=== PATIENT | female | born 1945 | race Caucasian/White ===

== ENCOUNTER 2025-05-28 18:35 | Emergency (ER) | payer MEDICARE, BC, SELFPAY ==
[2025-05-28 18:41] VITALS: BP 202/104
[2025-05-28 18:59] LABS: Hematocrit 45.8 % (37.0-47.0); Hemoglobin 15.4 g/dL (12.0-16.0); Mean Corp Hgb Conc. 33.6 g/dL (33.0-37.0); Mean Corpuscular Volume 90.2 fL (81.0-99.0); Nucleated Red Blood Cells % 0 %; Platelet Count 218 10^3/uL (130-400); Red Cell Dist. Width 13.0 % (11.5-14.5)
[2025-05-28 19:16] LABS: ALT (SGPT) 22 U/L (0-35); AST (SGOT) 37 U/L (14-36); Albumin 4.9 g/dl (3.5-5.0); Alkaline Phosphatase 119 U/L (38-126); Blood Urea Nitrogen 13 mg/dl (7-17); Calcium 9.6 mg/dl (8.4-10.2); Carbon Dioxide 26 mmol/L (22-30); Chloride 103 mmol/L (98-107); Glucose 112 mg/dl (70-99); Potassium 4.7 mmol/L (3.5-5.1); Sodium 137 mmol/L (135-145); Total Protein 8.2 g/dl (6.3-8.2); eGFR > 60.00
[2025-05-28 19:22] LABS: Troponin I < 0.012 ng/ml
[2025-05-28 23:00] VITALS: BP 165/92
[2025-05-28 23:12] VITALS: BMI 23.7
--- NOTE | 2025-05-28 23:34 | ED.GENMED ---
History of Present Illness
General
Chief Complaint: Musculo-Skeletal Complaint
Source: patient
Exam Limitations: none
Time Seen by Provider: 05/28/25 23:00
Nursing documentation reviewed up to this point in time: agreed with
History of Present Illness
History of Present Illness:
see MDM
Review of Systems
Review of Systems
Allergies reviewed?: Yes
All Other Systems: Not applicable
Phy Exam
Physical Exam
Physical Exam:
GENERAL: Alert , very anxious, tremor with intention, seems anxiety related
HEAD: NCAT
EYE: pupils equal and reactive, no nystagmus, no photophobia
NECK: Supple,full rom, nontender
ENT: o/p clr, mmm.
no pharyngeal erythema
CARDIAC: irregularly irregular, afib with RVR/tachy, no edema
LUNGS: Clear breath sounds bilaterally, no acute respiratory distress, no wheezes/rales/rhonchi
ABDOMEN: Soft, without focal tenderness, no r/g, no cvat
NEUROLOGICAL: Alert and orientedx 4, cn intact, no facial asymmetry, 5/5 strength in UE/LE, sensation intact, romberg neg, ambulates without assistance, neg pronator drift
tremor
SKIN: Warm and dry, skin intact.
MUSCULOSKELETAL: No edema, well perfused.
PSYCH: anxiety
Course
Orders/Labs/Results
Orders:
Orders
05/28/25 18:36
EKG [Electrocardiogram (*1)] Urgent
Reason for Study: Chest Pain
EKG- Treatment ONCE
05/28/25 18:53
Complete Blood Count/With Diff Urgent
Comprehensive Metabolic Panel Urgent
Troponin I Urgent
05/28/25 23:27
COVID-19 Antigen Urgent
Source: Nasal Swab
05/28/25 23:28
Troponin I Urgent
05/28/25 23:30
0.9% Sodium Chloride 500 ml [Nss] 500 ml IV BOLUS
Acetaminophen [Tylenol] 650 mg PO NOW STA
05/28/25 23:31
diazePAM [Valium Injection] 2 mg IV NOW STA
05/29/25
CT Head & Neck Angio W/wo IV Urgent
Comment: brain tumor
Reason For Exam: L neck pain, arm numbness, headache
05/29/25 00:05
CR Chest - 2 Views Urgent
Reason For Exam: L arm pain
05/29/25 00:46
Metoprolol [Lopressor] 2.5 mg IV NOW STA
Abnormal Lab Results
05/28/25
18:53
Absolute Lymphs (auto) 0.9 L 10^3/uL
(1.2-3.4)
Lymphocytes % 15.6 L %
(20.5-51.1)
Glucose 112 H mg/dl
(70-99)
Total Bilirubin 1.4 H mg/dl
(0.2-1.3)
AST 37 H U/L
(14-36)
05/28/25 18:53
05/28/25 18:53
Vital Signs
Initial and Last Documented VS:
Initial Vital Signs
Temp Pulse Resp BP Pulse Ox
36.8 C 133 22 202/104 99
05/28/25 18:41 05/28/25 18:41 05/28/25 18:41 05/28/25 18:41 05/28/25 18:41
Last Documented Vital Signs
Temp Pulse Resp BP Pulse Ox
37.1 C 94 20 144/106 97
05/28/25 23:14 05/29/25 02:22 05/29/25 01:30 05/29/25 02:00 05/29/25 01:45
MDM/Problems Addressed
Differential Diagnosis Includes:
see MDM
MDM/Problems Addressed:
Note:
CHIEF COMPLAINT(S)
1. A warm feeling in extremities followed by chills and sweating.
2. An unusual taste with certain foods.
3. Numbness and ache starting from the collarbone going down to the arms and into the fingers.
4. Discomfort extending to the chest and throat.
5. Headache located on the top of the head.
HISTORY OF PRESENT ILLNESS
The patient is a 79-year-old female presenting with a series of acute symptoms that began the previous evening. She initially experienced a warm sensation in her Larm, distinct from tingling or pins and needles that started yesterday evening. it
was minimal and she didn't pay attention to it.
this am, upon having breakfast and a snack, she noted that food tasted unusual. She describes a mid-morning onset of chills, compelling her to wrap herself up for warmth, which was followed by sweating. Around 2 PM, she began experiencing a numbness
and a constant ache originating from the collarbone radiating down the arm to the fingers, as well as discomfort in the chest. this has been constant since 2 pm. Alongside these symptoms, she reports a persistent top of the head headache rated at
6/10 in severity. She denies any pain with deep breathing, shortness of breath, sore throat, cough, diarrhea, or vomiting.
She reports having atrial fibrillation and is on anticoagulation therapy with Xarelto. 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 She admitted to skipping a dose of Atenolol, which
is her rate-controlling medication, potentially explaining her elevated heart rate but denies currently feeling any irregular heart activity.
The patient denies any history of myocardial infarction or cardiac catheterization. Her cardiac evaluation today showed no signs of an acute coronary syndrome, troponin levels were normal. An electrocardiogram confirmed atrial fibrillation without
additional acute changes. The clinician is considering a potential viral infection as the underlying cause of her current presentation, which may include chills and the systemic response indicated by elevated heart rate.
CHRONIC MEDICAL CONDITIONS SIGNIFICANTLY AFFECTING CARE
- Atrial Fibrillation
- Benign Meningioma
- Hypertension
MEDICATIONS
1. Xarelto (Rivaroxaban) - anticoagulant
2. Atorvastatin - for cholesterol management
3. Atenolol - for rate control in atrial fibrillation
PHYSICAL EXAM
- Cardiovascular: Elevated heart rate; consistent with atrial fibrillationw ith RVR
- Neurological: Examination for focal neurological deficits is negative. Headache is present, mainly on the vertex of the scalp.
- Integumentary: No skin abnormalities noted. The patient noted her hands turn purple during the day, suggesting possible cold intolerance.
Nursing notes reviewed and vital signs reviewed.
PLAN
1. Administer medication to lower heart rate and support blood pressure regulation.
2. Conduct a chest x-ray to exclude pneumonia as a cause for the symptoms.
3. Test for COVID-19 due to her recent exposure history and symptoms suggestive of a viral infection.
4. Draw repeat troponin levels to monitor cardiac stress indicators.
5. Consider a computed tomography scan or magnetic resonance imaging of the brain to monitor the meningioma and rule out acute changes.
6. Recommend supportive care with hydration, rest, and acetaminophen for the headache.
7. Follow up with primary care and cardiology to manage atrial fibrillation and assess the need for adjustments in chronic medications.
DIFFERENTIAL DIAGNOSIS
The Differential Diagnosis includes, in no particular order and is not limited to:
1. Viral infection (including COVID-19)
2. Anxiety or panic attack
3. Hypertensive episode
4. Transient ischemic attack (TIA)
5. Atrial fibrillation exacerbation
6. Gastric reflux or esophageal spasm
7. Myositis or musculoskeletal pain
8. Peripheral neuropathy
9. Stroke
10. New-onset angina or non-ischemic chest pain
0130
pt feeling much better
hr 80s, held the lopressor
just was treated with valiuma nd pt much more calm
rate controleld afib
covid neg
2nd trop neg
cta pending
feel that pt's symptoms likely rleatled to viral syndrome with the chills/fatigue/headache
but that she also got anxious and was havingt sxs of stress/anxiety
family said this has happened to her before and caused the same symptoms of pain in the neck/chest/arm
pt's CTA was neg
she feels much better
hr in the 80s at rest
bp improved
ok to go home
has anxiety meds at home
*Pulse Oximetry
SaO2: 96
Oxygen Mode of Delivery: Room air
Patient hypoxic: no (99)
*Critical Care Note
Total Time (30-74mins, 75-104mins- exclusive of procedures): Not Applicable
ED Attending Note
-
Portions of this chart may have been created with voice recognition software.� Occasional wrong word or��sound alike� substitutions may have occurred due to the inherent limitations of voice recognition software.
Discharge Plan
Departure
Patient Disposition: Home (Routine Discharge)
Date of Disposition: 05/29/25
Time of Disposition: 02:14
Patient with high blood pressure during this ER visit?: Yes
Condition: Fair
Covid-19: Not Applicable
Discharge Problem:
Atrial fibrillation, Anxiety, Chest pain
Instructions: Atrial fibrillation - Discharge instructions, Anxiety in adults - ED discharge instructions, Chest Pain NON-[facility] [employer] Follow Up
Prescriptions:
No Action
atenolol 25 mg Tablet
25 mg PO DAILY
alprazolam [Xanax] 0.5 mg Tablet
0.5 mg PO DAILY
atorvastatin [Lipitor] 20 mg Tablet
20 mg PO DAILY
levothyroxine 88 mcg Tablet
88 mcg PO DAILY
lamotrigine [Lamictal] 100 mg Tablet
100 mg PO DAILY
rivaroxaban [Xarelto] 20 mg Tablet
20 mg PO DAILY
Referrals:
Lokesh Campbell, [Family Provider, Internal Medicine] - Follow up in 2-3 days
Activity Restrictions/Additional Instructions:
I think your symptoms are likely due to a viral infection, including your fatigue and your headache and your chills today. However the chest discomfort or arm pain and neck pain could have been from a anxiety reaction. Your cardiac enzymes were
normal, you were admitted in atrial fibrillation with a elevated heart rate but it did come down with some anxiety medication. Please take your medications tonight as usual. Your CAT scan did not show any findings in your head or neck to be
concerned
Take Tylenol for headache, drink plenty of fluids, rest. Please follow-up with both your primary doctor and your mail caller early next week
Interventions
Interventions:
*Risk Screen - Suicide Last Done: 05/28/25 18:46
*General Assessment Last Done: 05/28/25 18:46
*Neglect/Abuse Screening Last Done: 05/28/25 18:46
*ED- Fall Risk Assessment Last Done: 05/29/25 02:53
*ED COVID-19 Vaccine History Last Done: 05/28/25 18:46
*Nursing Disposition Last Done: 05/29/25 02:53
ED-Musculoskeletal Assessment Last Done: 05/28/25 23:56
Discharge Date and Time
Discharge Date/Time: 05/29/25 02:54
Print Language: BENGALI
[2025-05-28] MEDS: TYLENOL 650 MG PO (23:47)
[2025-05-28] MEDS: VALIUM INJECTION 2 MG IV (23:48)
[2025-05-29 00:18] VITALS: BP 146/113
[2025-05-29] MEDS: NSS 500 IV (00:34)
[2025-05-29 00:58] LABS: COVID-19 Antigen Negative (Negative)
[2025-05-29 01:15] VITALS: BP 153/92
[2025-05-29 01:22] LABS: Troponin I < 0.012 ng/ml
[2025-05-29 02:00] VITALS: BP 144/106
== END 2025-05-29 02:54 | disposition home or self-care (01) ==
LOC: EMR 18:35
PROVIDERS: Emergency Medicine; Physician Assistant; EMERGENCY PHYSICIAN Student in an Organized Health Care Education/Training Program; FAMILY PHYSICIAN Internal Medicine
DX: I48.91 Unspecified atrial fibrillation (principal); F41.9 Anxiety disorder, unspecified; R07.9 Chest pain, unspecified; I10 Essential (primary) hypertension; D32.9 Benign neoplasm of meninges, unspecified; Z79.01 Long term (current) use of anticoagulants
CPT/HCPCS: 96374; 96361; 99285; 70496; 70498; 71046; 80053; 84484; 85025; 87811; 93005; Q9967